=== PATIENT | female | born 2000 | race Caucasian/White ===

== ENCOUNTER 2023-12-24 03:43 | Emergency (ER) | payer OTHER, SELFPAY ==
[2023-12-24 03:57] VITALS: BP 133/95; PULSE 120; RESP 20; TEMP 36.8; O2SAT 97; BMI 21.0
--- NOTE | 2023-12-24 04:22 | ED_ITS ---
HPI - Fall General Chief Complaint: Fall Stated Complaint: Inj right eye/Fall Time Seen by Provider: 12/24/23 04:06 Source: patient Mode of arrival: ambulatory Limitations: no limitations History of Present Illness HPI Narrative: Patient had few drinks was walking tripped and fell hitting her right side of the face to the as in her room came with laceration right eyebrow no other injuries no loss of consciousness Related Data Allergies Allergy/AdvReac Type Severity Reaction Status Date / Time No Known Allergies Allergy Verified 12/24/23 03:56 Review of Systems 2 Review of Systems: Yes all other systems are reviewed and are negative [facility] Social History Social History Alcohol intake: current Smoked in Last 30 Days: No Use of substances other than those prescribed or required for medical reasons: No Advance Directives: No Advance Directives Information Provided: No Patient : No Physical Exam 2 Vital Signs: Vital Signs: Last Vital Signs Temp 98.2 F 12/24/23 03:57 Pulse 120 H 12/24/23 03:57 Resp 20 12/24/23 03:57 BP 133/95 H 12/24/23 03:57 Pulse Ox 97 12/24/23 03:57 O2 Del Method Room Air 12/24/23 03:57 BMI result Body Mass Index 21.0 Appearance: Alert. Oriented X3. No acute distress. Eyes: PERRLA, No Nystagmus ENT: Pharynx normal. Oral Mucosa moist tympanic membrane intact Neck: Normal inspection. Neck supple. No midline tenderness CVS: Normal heart rate and rhythm. Pulses normal. Respiratory: No respiratory distress. Equal air entry bilateral, no wheezing/rales/rhonchi Neuro: Oriented X 3. No motor deficit. No sensory deficit.No cerebellar signs , cranial nerves II-XII intact HEENT: Face images: 1. 2 cm superficial laceration right eyebrow Procedures Laceration Laceration 1: Site: face (Right upper eyelid) Side (If applicable): right Size (cm): 2 Description: linear Depth: simple, single layer Skin layer closed with: other (Skin adhesive) Medical Decision Making Medical Decision Making MDM Narrative: Patient with superficial laceration right eyebrow after mechanical fall no laceration was glued together with skin adhesive Discharge Plan Discharge Clinical Impression: Laceration of eyebrow Patient Disposition: Home, Self-Care Instructions: Laceration (ED) Additional Instructions: Local care as advised Your laceration should heal within 5-7 days
--- NOTE | 2023-12-24 04:33 | PC.NURSE ---
at bedside to assess pt, provider gluing laceration at this time.
== END 2023-12-24 04:51 | disposition home or self-care (01) ==
PROVIDERS: Emergency Provider Internal Medicine
DX: S01.111A Laceration without foreign body of right eyelid and periocular area, initial encounter (principal); H57.11 Ocular pain, right eye; W10.9XXA Fall (on) (from) unspecified stairs and steps, initial encounter; Y93.9 Activity, unspecified; Y92.9 Unspecified place or not applicable; Y99.8 Other external cause status
CPT/HCPCS: 12011; 99284